=== PATIENT | female | born 1985 | race African-American/Black ===

== ENCOUNTER 2016-07-27 16:45 | Emergency (ER) | payer SELFPAY ==
[~2016-07-27] VITALS: Ht 162.6 cm; Wt 55.0 kg
[2016-07-27] MEDS ORDERED: KETOROLAC 60MG/2ML VIAL IM ONE (18:00)
[2016-07-27 19:38] VITALS: BP 127/83
== END 2016-07-27 20:22 | disposition home or self-care (01) ==
LOC: ER 16:46
DX: S02.82XA Fracture of other specified skull and facial bones, left side, initial encounter for closed fracture (principal); J01.90 Acute sinusitis, unspecified; V43.92XA Unspecified car occupant injured in collision with other type car in traffic accident, initial encounter; Y93.89 Activity, other specified; Y99.9 Unspecified external cause status; Y92.89 Other specified places as the place of occurrence of the external cause
CPT/HCPCS: 12011; 70486; 81025; 96372; 99284; J1885; Z7610